=== PATIENT | female | born 1995 | race Caucasian/White ===

== ENCOUNTER 2017-02-13 17:57 | Emergency (ER) | payer OTHER ==
[2017-02-13 20:08] LABS: HEMOGLOBIN 10.5 gm/dl (12.3-15.3); RED BLOOD COUNT 3.59 M/UL (4.00-5.10); WHITE BLOOD COUNT 13.1 K/UL (4.5-11.0)
[2017-02-13 20:28] LABS: BUN/CREATININE RATIO 20 (0-10)
== END 2017-02-13 22:04 | disposition home or self-care (01) ==
LOC: GENOP 17:57 → ER1 17:57 → EDSTATUS 18:07 → ER1 22:04
PROVIDERS: Family Medicine
DX: O98.512 Other viral diseases complicating pregnancy, second trimester (principal); B34.9 Viral infection, unspecified; Z3A.24 24 weeks gestation of pregnancy
CPT/HCPCS: 36415; 80053; 81001; 85025; 87081; 87880; 99283